=== PATIENT | male | born 1960 | race Caucasian/White ===

== ENCOUNTER 2024-12-13 18:57 | Emergency (ER) | payer OTHER ==
[2024-12-13] MEDS ORDERED: LIDOCAINE 1% 20 ML MDV ONE (19:48)
--- NOTE | 2024-12-13 20:58 | RAD REPORT ---
EXAM:Finger-Thumb Right HISTORY: catfish spine removed from tip COMPARISON: None IMPRESSION: No right hand fracture identified. No radiopaque foreign body. Scattered interphalangeal joint degenerative changes.
--- NOTE | 2024-12-13 21:03 | ER ---
Nurse's Notes [facility] Name: Dat Melissa Age: 64 yrs Sex: Male : 1960 Arrival Date: 12/13/2024 Time: 18:57 Bed 10 Private MD: Diagnosis: Catfish sting to right thumb;Foreign body to right thumb Presentation: 12/13 19:30 Chief complaint: Patient states: got a catfish robyn stuck in his right thumb X 1 hour. iw Initial Sepsis Screen: Does the patient meet any 2 criteria? No. Patient's initial sepsis screen is negative. Does the patient have a suspected source of infection? No. Patient's initial sepsis screen is negative. Onset of symptoms was December 13, 2024. 19:30 Acuity: ANKUSH 3 iw Historical: - Allergies: 19:31 Sulfa (Sulfonamide Antibiotics); iw - Home Meds: 19:31 None [Active]; iw - PMHx: 19:31 None; iw - PSHx: 19:31 None; iw - Immunization history:: Last tetanus immunization: < 5 years ago. - Infectious Disease History:: Denies. - Social history:: Smoking status: Patient denies any tobacco usage or history of. - Family history:: not pertinent. Screenin:35 [facility] ED Fall Risk Assessment (Adult) History of falling in the last 3 months, br2 including since admission No falls in past 3 months (0 pts) Confusion or Disorientation No (0 pts) Intoxicated or Sedated No (0 pts) Impaired Gait No (0 pts) Mobility Assist Device Used No (0 pt) Altered Elimination No (0 pt) Score/Fall Risk Level 0 - 2 = Low Risk Oriented to surroundings. Abuse screen: Denies threats or abuse. Denies injuries from another. Nutritional screening: No deficits noted. Tuberculosis screening: No symptoms or risk factors identified. Assessment: 19:35 Reassessment: Patient and/or family updated on plan of care and expected duration. Pain br2 level reassessed. Patient is alert, oriented x 3, equal unlabored respirations, skin warm/dry/pink. General: Appears in no apparent distress. distressed. 19:35 Musculoskeletal: FOREIGN BODY RIGHT THUMB. br2 Vital Signs: 19:31 BP 145 / 111; Pulse 72; Resp 16; Temp 96.9; Pulse Ox 100% ; Weight 104.33 kg; Height 5 iw ft. 10 in. ; Pain 10/10; 19:31 Body Mass Index 33.00 (104.33 kg, 177.8 cm) iw 19:31 Pain Scale: Adult ED Course: 18:59 Patient arrived in ED. im 19:12 Jon Rodriguez MD is Attending Physician. rt 19:31 Triage completed. iw 19:35 Patient has correct armband on for positive identification. Provided Education on: PLAN br2 OF CARE. 20:15 Assist provider with foreign body removal of a fish hook from right THUMB using br2 hemostats, Set up for procedure. Performed by Jon Rodriguez MD Patient tolerated well. 20:28 Gayla Liu, RN is Primary Nurse. br2 21:14 Patient did not have IV access during this emergency room visit. br2 Administered Medications: 20:00 Drug: Lidocaine Infiltration (1 %) 5 ml 5 ml Infiltration once; to bedside Volume: 5 br2 ml; Route: Infiltration; 21:15 Drug: Ciprofloxacin PO 500 mg PO once Route: PO; br2 21:15 Follow up: Response: No adverse reaction; Medication administered at discharge. br2 Outcome: 21:03 Discharge ordered by . rt 21:14 Discharged to home ambulatory, br2 21:14 Condition: improved 21:14 Discharge instructions given to patient, Instructed on discharge instructions, follow up and referral plans. Demonstrated understanding of instructions, follow-up care, medications, Prescriptions given X 1, 21:15 Patient left the ED. br2 Signatures: Argelia De La Cruz RN RN Jon Rodriguez MD MD rt Francisca Fang im Gayla Liu, [place] RN br2 Corrections: (The following items were deleted from the chart) 23:15 19:15 Reassessment: Patient and/or family updated on plan of care and expected br2 duration. Pain level reassessed. Patient is alert, oriented x 3, equal unlabored respirations, skin warm/dry/pink. br2 23:15 19:15 General: Appears in no apparent distress. distressed, br2 br2 23:15 19:15 Pain: Denies pain. br2 br2 23:19 21:14 No provider procedures requiring assistance completed. br2 br2
--- NOTE | 2024-12-13 21:03 | EDPHYS ---
Physician Documentation [facility] Name: Dat Melissa Age: 64 yrs Sex: Male : 1960 Arrival Date: 12/13/2024 Time: 18:57 Bed 10 Private MD: ED Physician Jon Rodriguez HPI: 12/13 21:06 This 64 yrs old Male presents to ER via Unassigned with complaints of Finger Injury - rt fish robyn on finger. 21:06 Patient presents to the ED with foreign body to the tip of the right thumb, reportedly rt catfish robyn, occurring just prior to arrival. Patient reports pain to the area. Denies other acute complaints at this time, symptoms are moderate severity, no other aggravating alleviating factors.. Historical: - Allergies: 19:31 Sulfa (Sulfonamide Antibiotics); iw - Home Meds: 19:31 None [Active]; iw - PMHx: 19:31 None; iw - PSHx: 19:31 None; iw - Immunization history:: Last tetanus immunization: < 5 years ago. - Infectious Disease History:: Denies. - Social history:: Smoking status: Patient denies any tobacco usage or history of. - Family history:: not pertinent. ROS: 21:06 Constitutional: Negative for fever, chills, and weight loss, Eyes: Negative for injury, rt pain, redness, and discharge, Skin: Negative for injury, rash, and discoloration, Neuro: Negative for headache, weakness, numbness, tingling, and seizure, 21:06 MS/extremity: Positive for Foreign body, pain, Exam: 21:06 Constitutional: This is a well developed, well nourished patient who is awake, alert, rt and in no acute distress. Head/Face: Normocephalic, atraumatic. Neuro: Awake and alert, GCS 15, oriented to person, place, time, and situation. Cranial nerves II-XII grossly intact. Motor strength 5/5 in all extremities. Sensory grossly intact. Cerebellar exam normal. Normal gait. Psych: Awake, alert, with orientation to person, place and time. Behavior, mood, and affect are within normal limits. 21:06 Musculoskeletal/extremity: Catfish robyn noted to the tip of the thumb, surrounding swelling, bruising, no other external signs of injury.. Vital Signs: 19:31 BP 145 / 111; Pulse 72; Resp 16; Temp 96.9; Pulse Ox 100% ; Weight 104.33 kg; Height 5 iw ft. 10 in. ; Pain 10/10; 19:31 Body Mass Index 33.00 (104.33 kg, 177.8 cm) iw 19:31 Pain Scale: Adult iw Procedures: 21:06 Foreign Body Removal: Catfish robyn, from the right Thumb, by using a hemostat, The rt patient tolerated the removal well, Wound was irrigated copiously with sterile saline after removal and then was placed under hot water at the sink, patient reports significant improvement of pain. MDM: 19:37 Medical Screening Exam initiated rt 21:06 Differential diagnosis: Foreign body, complete removed, partial foreign body removal. rt Data reviewed: vital signs, nurses notes, radiologic studies. I considered the following discharge prescriptions or medication management in the emergency department Medications were administered in the Emergency Department. See MAR. Independent interpretation of the following test(s) in the Emergency Department X-Ray: My interpretation is No retained foreign body seen on my interpretation of x-ray images. Counseling: I had a detailed discussion with the patient and/or guardian regarding the historical points, exam findings, and any diagnostic results supporting the discharge/admit diagnosis, radiology results, the need for outpatient follow up, to return to the emergency department if symptoms worsen or persist or if there are any questions or concerns that arise at home. Response to treatment: the patient's symptoms have markedly improved after treatment. 12/13 20:13 Order name: Finger-Thumb RIGHT XRAY rt 12/13 20:58 Order name: RAD; Complete Time: 20:59 EDMS Administered Medications: 20:00 Drug: Lidocaine Infiltration (1 %) 5 ml 5 ml Infiltration once; to bedside Volume: 5 br2 ml; Route: Infiltration; 21:15 Drug: Ciprofloxacin PO 500 mg PO once Route: PO; br2 21:15 Follow up: Response: No adverse reaction; Medication administered at discharge. br2 Disposition Summary: 12/13/24 21:03 Discharge Ordered Notes: Location: Home rt Problem: new rt Symptoms: have improved rt Condition: Stable rt Diagnosis - Catfish sting to right thumb rt - Foreign body to right thumb rt Followup: rt - With: Private Physician - When: 2 - 3 days - Reason: Discharge Instructions: - Discharge Summary Sheet rt - Hand or Foot Foreign Body, Adult rt Forms: - Medication Reconciliation Form rt - Antibiotic Education rt - Prescription Opioid Use rt - Patient Portal Instructions rt - Leadership Thank You Letter rt Prescriptions: - Cipro 500 mg Oral Tablet - take 1 tablet ORAL route every 12 hours for 7 days; 14 tablet; Refills: 0, rt Product Selection Permitted Signatures: Dispatcher [employer] Argelia Ocampo, [place] GÓMEZ iw Jon Rodriguez MD MD rt Gayla Liu RN RN br2
[2024-12-13] MEDS ORDERED: CIPROFLOXACIN HCL 500 MG TAB ONE (21:12)
[2024-12-13 21:22] VITALS: BP 145/111; TEMP 96.9; O2SAT 100
== END 2024-12-13 21:15 | disposition home or self-care (01) ==
LOC: ER 18:57
DX: S61.041A Puncture wound with foreign body of right thumb without damage to nail, initial encounter (principal); W56.51XA Bitten by other fish, initial encounter
CPT/HCPCS: 73140; 99283; J2003